=== PATIENT | male | born 1955 | race Caucasian/White ===

== ENCOUNTER 2018-09-19 07:46 | Emergency (ER) | payer MEDICAID, MEDICARE ==
--- NOTE | 2018-09-19 08:19 | UC ---
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 Was seen by [facility] and told he was 'overusing' his right leg. Has restarted working at [employer] and is on his feet for extended time. Has increased swelling and pain in his right knee and ankle. Wears compression stockings with some relief. Did play football in past and has chronic bilateral knee issues since then. " -also has pain shooting down his right thigh and into calf for years. went to PT x 1 and didnt have any relief. -sleeps in his recliner bc he has AGUSTO and CPAP doesnt work. -has had many US down - no DVT hx. no FHx DVT. knows he has cartilage problems. has had knee drained several times and he is unsure of dx. knows it wasnt infected. has had got but this definitely does not feel like gout. no fevers/ chills. - History of Current Complaint Chief Complaint: UCLowerExtremity Stated Complaint: RIGHT LEG COMPLAINT Time Seen by Provider: 09/19/18 08:01 Pain Intensity: 9 - Allergies/Home Medications Allergies/Adverse Reactions: Allergies Allergy/AdvReac Type Severity Reaction Status Date / Time No Known Allergies Allergy Verified 09/19/18 08:01 PMH/Surg Hx/FS Hx/Imm Hx Previously Healthy: Yes Other History Of: Hepatitis B - 40 years ago--non carrier. Negative For: HIV, Hepatitis C, Anticoagulant Therapy - Surgical History Surgical History: Yes Surgery Procedure, Year, and Place: Left Nephrectomy, ~2008, [facility]; Kidney Stone, 2008; Stent in Common Bile Duct x 2; Kidney Stone, ~2002, [facility]; Urethroscopy; Left Shoulder Disloration/ Fracture with Pin Placement, 1974, [place]; - Family History Known Family History: Positive: Cardiac Disease - in their 90's., Other - No DVTs Negative: Hypertension, Diabetes - Social History Alcohol Use: Rare Alcohol Amount: Quit 2012 Substance Use Type: None Smoking Status (MU): Never Smoked Tobacco Have You Smoked in the Last Year: No Review of Systems All Other Systems Reviewed And Are Negative: Yes Constitutional: Positive: Negative Skin: Positive: Negative Eyes: Positive: Negative ENT: Positive: Negative Respiratory: Positive: Negative Cardiovascular: Positive: Negative Gastrointestinal: Positive: Negative Genitourinary: Positive: Negative Motor: Positive: Negative Neurovascular: Positive: Negative Musculoskeletal: Positive: Decreased ROM, Edema, Other: - right posterior thigh and claf cramping coming from back that is chronic. Negative: Calf Tenderness Neurological: Positive: Negative Psychological: Positive: Negative Is Patient Immunocompromised?: No Physical Exam Triage Information Reviewed: Yes Appearance: Well-Nourished, Pain Distress - significant limp d/t pain Vital Signs: Initial Vital Signs Temp 97.5 F 09/19/18 07:56 Pulse 85 09/19/18 07:56 Resp 17 09/19/18 07:56 BP 146/108 09/19/18 07:56 Pulse Ox 98 09/19/18 07:56 Vital Signs Reviewed: Yes Eye Exam: Normal ENT Exam: Normal Respiratory Exam: Normal Respiratory: Positive: Lungs clear, Normal breath sounds, No respiratory distress, No accessory muscle use. Negative: Crackles, Rhonchi, Stridor, Wheezing Cardiovascular Exam: Normal Cardiovascular: Positive: RRR Abdominal Exam: Normal Abdomen Description: Positive: Nontender, Soft Musculoskeletal: Positive: Other: - right knee w/ moderate swelling compared to left. not fluctuant. not hot, slight tenderness, no erythema. Neurological Exam: Normal Psychological Exam: Normal Skin Exam: Normal Lower Extremity Course/Dx - Course Course Of Treatment: Needs FU w/ ortho and possibly rheum. Understands dx is difficult adn would require review of previous synovial fluid, imaging and ortho notes. Naproxen for pain control and inflammation. rest for several days. has had this in past and sx resloved completely in 3 days with rest and naproxen. crutches given here. - Differential Dx/Diagnosis Differential Diagnosis/HQI/PQRI: Bursitis, Cellulitis, Gout, Infection, Sprain, Strain Provider Diagnosis: Knee swelling Discharge - Sign-Out/Discharge Documenting (check all that apply): Patient Departure All imaging exams completed and their final reports reviewed: No Studies - Discharge Plan Condition: Stable Disposition: HOME Prescriptions: Naproxen [Naproxen 500 mg tab] 500 mg PO BID #20 tablet Patient Education Materials: Crutch Instructions (ED), Lumbar Radiculopathy (ED ), Swollen Knee Joint (ED), Lower Back Exercises (ED) Forms: *Work Release Referrals: Franck Marquez MD [Primary Care Provider] - Brett Malagon MD [Medical Doctor] - Additional Instructions: -You should be out of work today and tomorrow. Rest your leg as much as possible with use of crutches. Naproxen for pain and swelling. Ice can be helpful w/ towel barrier 20 mins on/off. -Follow up with orthopedics and possibly cpa tax for further evaluation. -Physical therapy and yoga can be very helpful for your back. You can follow up with your PCP to see if you need update on imaging of your back depending on when most recent images were taken. -Your blood pressure is elevated today. Please make sure to keep your follow up with your PCP this week. The repeat blood pressure was better on repeat at 158/ 86. However, being on anti-inflamatories can increase the blood pressure so you should keep a close eye on this. - Billing Disposition and Condition Condition: STABLE Disposition: Home
[2018-09-19 08:45] VITALS: BP 158/86
== END 2018-09-19 09:00 | disposition home or self-care (01) ==
LOC: UCCORT 07:46
DX: M25.461 Effusion, right knee (principal); M25.561 Pain in right knee; M25.471 Effusion, right ankle; G47.33 Obstructive sleep apnea (adult) (pediatric)
CPT/HCPCS: 99213; G0463